=== PATIENT | male | born 1965 | race Caucasian/White ===

== ENCOUNTER 2018-06-01 07:24 | Emergency (ER) | payer OTHER ==
[~2018-06-01] VITALS: Ht 177.8 cm; Wt 111.1 kg
[2018-06-01] MEDS ORDERED: PANTOPRAZOLE SO40 MG (07:39)
[2018-06-01] MEDS ORDERED: CRESTOR5 MG (07:39)
[2018-06-01] MEDS ORDERED: ATENOLOL100 MG (07:39)
[2018-06-01] MEDS ORDERED: ALLOPURINOL 100 MG (07:41)
[2018-06-01] MEDS ORDERED: NORVASC5 MG (07:41)
[2018-06-01] MEDS ORDERED: SYNJARDY 5-1,01 EACH (07:41)
[2018-06-01] MEDS ORDERED: GLUCOPHAGE XR500 MG (07:42)
[2018-06-01] MEDS ORDERED: TRIPLIX (07:43)
[2018-06-01] MEDS ORDERED: AVAPRO300 MG (07:43)
== END 2018-06-01 15:42 | disposition home or self-care (01) ==
LOC: ER 07:24
DX: K52.9 Noninfective gastroenteritis and colitis, unspecified (principal); R19.7 Diarrhea, unspecified